=== PATIENT | female | born 1995 | race Asian ===

== ENCOUNTER 2016-12-16 21:45 | Emergency (ER) | payer MEDICAID ==
[2016-12-16 21:49] VITALS: BP 114/87
== END 2016-12-16 22:26 | disposition home or self-care (01) ==
LOC: ED 21:45
DX: L03.116 Cellulitis of left lower limb (principal)

== ENCOUNTER 2016-12-22 17:04 | Emergency (ER) | payer MEDICAID ==
[2016-12-22 18:19] VITALS: BP 95/60
== END 2016-12-22 18:32 | disposition home or self-care (01) ==
LOC: ED 17:04
DX: G44.40 Drug-induced headache, not elsewhere classified, not intractable (principal); R68.83 Chills (without fever); R53.83 Other fatigue; K21.9 Gastro-esophageal reflux disease without esophagitis; T36.1X5A Adverse effect of cephalosporins and other beta-lactam antibiotics, initial encounter; Y92.89 Other specified places as the place of occurrence of the external cause